=== PATIENT | female | born 1960 | race Caucasian/White ===

== ENCOUNTER 2020-05-13 09:18 | Emergency (ER) | payer MEDICAID ==
--- NOTE | 2020-05-13 10:08 | EDM.PDOC ---
ED HPI GENERAL MEDICAL PROBLEM - General Chief Complaint: General Stated Complaint: PAIN IN NECK AND GOING DOWN ARM Time Seen by Provider: 05/13/20 09:40 Source of Information: Reports: Patient, Family History Limitations: Reports: No Limitations - History of Present Illness INITIAL COMMENTS - FREE TEXT/NARRATIVE: 59-year-old female with chronic arthritis problems, is having a flare of her right arm and right knee over the past several days. She was placed on a course of steroids a year ago and she has done well ever since, she has no primary physician and recently moved to the area and just wants to get some relief. No significant swelling, no trauma, no falls. She is having a lot of numbness in her right hand at night. Onset: Gradual Duration: Day(s): (2 to 3 days) Location: Reports: Upper Extremity, Right, Lower Extremity, Right Improves with: Reports: None Worsens with: Reports: Other (Her right arm seems worse at night), Movement Associated Symptoms: Denies: Fever/Chills Generalized Pain Score (Numeric/FACES): 8 - Related Data Allergies Allergy/AdvReac Type Severity Reaction Status Date / Time Penicillins Allergy Hives Verified 05/13/20 09:40 Home Meds: Home Meds NK [No Known Home Meds] 05/13/20 [History] Past Medical History Genitourinary History: Reports: Other (See Below) Other Genitourinary History: 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 - Infectious Disease History Infectious Disease History: Reports: Mumps Social & Family History - Tobacco Use Tobacco Use Status *Q: Current Every Day Tobacco User Years of Tobacco use: 30 Packs/Tins Daily: 0.5 Used Tobacco, but Quit: No Second Hand Smoke Exposure: Yes - Caffeine Use Caffeine Use: Reports: Coffee - Recreational Drug Use Recreational Drug Use: No ED ROS GENERAL - Review of Systems Review Of Systems: See Below Constitutional: Denies: Fever, Chills Respiratory: Denies: Shortness of Breath Cardiovascular: Denies: Chest Pain GI/Abdominal: Denies: Abdominal Pain, Nausea, Vomiting : Reports: No Symptoms Musculoskeletal: Reports: Joint Pain (Especially right knee) Skin: Denies: Bruising Neurological: Reports: Paresthesia (Paresthesias in her right hand not including the small finger, worse at night) ED EXAM, GENERAL - Physical Exam Exam: See Below Exam Limited By: No Limitations General Appearance: Alert, No Apparent Distress Head: Atraumatic Neck: Supple, Non-Tender Respiratory/Chest: Lungs Clear Cardiovascular: Regular Rate, Rhythm Extremities: Other (No effusion of the right elbow, wrist or knee. Moderate discomfort with flexion and extension of the knee.) Neurological: Alert, Oriented Course - Vital Signs Last Recorded V/S: Last Vital Signs Temp 98.4 F 05/13/20 09:48 Pulse 84 05/13/20 09:48 Resp 16 05/13/20 09:48 BP 142/72 H 05/13/20 09:48 Pulse Ox 92 L 05/13/20 09:48 - Re-Assessments/Exams Free Text/Narrative Re-Assessment/Exam: 05/13/20 10:09 Patient was placed on a Medrol Dosepak and given naproxen to take twice daily as needed. I encouraged her to establish care at the clinic with Dr. Anne Miranda and she agreed to call and make an appointment. Departure - Departure Time of Disposition: 10:20 Disposition: Home, Self-Care 01 Clinical Impression: Acute arthritis - Discharge Information Instructions: Arthritis, [id number] Referrals: PCP,None [Primary Care Provider] - Forms: ED Department Discharge Care Plan Goals: Take steroid as directed, and use naproxen up to twice daily with food. Call the clinic to see if you can get established with Dr. Anne Miranda for follow-up care. Wear the wrist splint at night for your carpal tunnel and wrap knee if it helps with discomfort. Sepsis Event Note (ED) - Evaluation Sepsis Screening Result: No Definite Risk - Focused Exam Vital Signs: Vital Signs Temp Pulse Resp BP Pulse Ox 05/13/20 09:48 98.4 F 84 16 142/72 H 92 L 05/13/20 09:36 98.4 F 84 16 142/72 H 92 L
== END 2020-05-13 10:20 | disposition home or self-care (01) ==
LOC: JP.ED 09:18
DX: M13.861 Other specified arthritis, right knee (principal); M13.841 Other specified arthritis, right hand; F17.210 Nicotine dependence, cigarettes, uncomplicated; Z88.0 Allergy status to penicillin
CPT/HCPCS: 99283

== ENCOUNTER 2020-10-22 16:52 | Emergency (ER) | payer MEDICAID ==
--- NOTE | 2020-10-22 18:52 | EDM.PDOC ---
ED HPI GENERAL MEDICAL PROBLEM - General Chief Complaint: Respiratory Problem Stated Complaint: LOWER BACK PAIN, CONGESTION, COUGH Time Seen by Provider: 10/22/20 18:15 Source of Information: Reports: Patient History Limitations: Reports: No Limitations - History of Present Illness INITIAL COMMENTS - FREE TEXT/NARRATIVE: Yuli is a 59-year-old female presenting to the ED for evaluation of increased facial pain, congestion, cough, and shortness of breath. Due to unfortunate circumstances, the patient and her have found himself is now living [place] to being [place]. They both of come down with similar symptoms over the last 3 to 4 days. Her symptoms began with facial pain and congestion whereas his was a cough and shortness of breath. Does say that her face hurts worse if she bends forward to tie her shoes. She denies any fever or chills. The cough has been productive of thick yellow sputum. 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 Psychiatric History: Reports: Depression Endocrine/Metabolic History: Reports: Obesity/BMI 30+ - Infectious Disease History Infectious Disease History: Reports: Mumps - Past Surgical History Head Surgeries/Procedures: Reports: None Female Surgical History: Reports: None Endocrine Surgical History: Reports: None Musculoskeletal Surgical History: Reports: None Dermatological Surgical History: Reports: None Social & Family History - Tobacco Use Tobacco Use Status *Q: Current Every Day Tobacco User Years of Tobacco use: 45 Packs/Tins Daily: 0.2 Used Tobacco, but Quit: No Second Hand Smoke Exposure: Yes - Caffeine Use Caffeine Use: Reports: Soda - Recreational Drug Use Recreational Drug Use: No ED ROS GENERAL - Review of Systems Review Of Systems: See Below Constitutional: Reports: No Symptoms HEENT: Reports: Rhinitis, Sinus Problem, Other (Nasal congestion) Respiratory: Reports: Shortness of Breath, Cough Cardiovascular: Reports: No Symptoms Endocrine: Reports: No Symptoms GI/Abdominal: Reports: No Symptoms : Reports: No Symptoms Musculoskeletal: Reports: No Symptoms Skin: Reports: No Symptoms Neurological: Reports: No Symptoms Psychiatric: Reports: No Symptoms Hematologic/Lymphatic: Reports: No Symptoms Immunologic: Reports: No Symptoms ED EXAM, GENERAL - Physical Exam Exam: See Below Exam Limited By: No Limitations General Appearance: Alert, No Apparent Distress Eye Exam: Bilateral Eye: EOMI, PERRL Nose: Nasal Swelling, Nasal Drainage, Other (Tenderness to percussion over the bilateral maxillary sinuses) Throat/Mouth: Normal Inspection, Normal Lips, Normal Oropharynx, Normal Voice, No Airway Compromise Head: Atraumatic, Normocephalic Neck: Normal Inspection, Supple, Non-Tender, Full Range of Motion. No: Lymphadenopathy (R), Lymphadenopathy (L) Respiratory/Chest: No Respiratory Distress, No Accessory Muscle Use, Wheezing (Expiratory greater than inspiratory wheezes consistent with COPD) Cardiovascular: Normal Peripheral Pulses, Regular Rate, Rhythm, No Murmur Peripheral Pulses: 2+: Radial (L), Radial (R) GI/Abdominal: Normal Bowel Sounds, Soft, Non-Tender Back Exam: Normal Inspection Extremities: Normal Inspection Neurological: Alert, Oriented, Normal Cognition, No Motor/Sensory Deficits Psychiatric: Normal Affect Skin Exam: Warm Lymphatic: No Adenopathy Course - Vital Signs Last Recorded V/S: Last Vital Signs Temp 36.6 C 10/22/20 17:11 Pulse 86 10/22/20 20:05 Resp 24 H 10/22/20 17:11 BP 141/68 H 10/22/20 20:05 Pulse Ox 91 L 10/22/20 20:05 - Orders/Labs/Meds Orders: Active Orders 24 hr Category Date Time Status Chest 2V [CR] Stat Exams 10/22/20 18:16 Taken Labs: Laboratory Tests 10/22/20 10/22/20 Range/Units 18:29 18:29 WBC 8.8 (4.5-11.0) K/uL RBC 5.29 (3.30-5.50) M/uL Hgb 16.0 H (12.0-15.0) g/dL Hct 49.1 H (36.0-48.0) % MCV 93 (80-98) fL MCH 30 (27-31) pg MCHC 33 (32-36) % Plt Count 210 (150-400) K/uL Neut % (Auto) 71.4 H (36-66) % Lymph % (Auto) 12.9 L (24-44) % Blair % (Auto) 8.3 H (2-6) % Eos % (Auto) 6.8 H (2-4) % Baso % (Auto) 0.6 (0-1) % C-Reactive Protein 2.26 H (0.0-0.3) mg/dL - Radiology Interpretation Free Text/Narrative:: I viewed the two-view chest x-ray demonstrating hyperinflation but no evidence of focal infiltrates. - Re-Assessments/Exams Free Text/Narrative Re-Assessment/Exam: 10/22/20 20:06 reviewed the patient's labs showing a normal CBC but a significantly elevated CRP at 2.26. The chest x-ray was unremarkable for any acute infiltrates but did show evidence of COPD. The patient likely has acute on chronic bronchitis causing her cough as well as acute sinusitis of the left ethmoid and maxillary sinus. We will put her on azithromycin Z-Christiano which I will send out to the [employer] machine. I anticipate that she will get better over the next 3 to 4 days and reviewed with her indications to return to the ED for reevaluation. Departure - Departure Time of Disposition: 20:07 Disposition: Home, Self-Care 01 Clinical Impression: Acute exacerbation of chronic bronchitis Sinusitis, acute maxillary Qualifiers: Recurrence: not specified as recurrent Qualified Code(s): J01.00 - Acute maxillary sinusitis, unspecified - Discharge Information Instructions: Acute Bronchitis, Adult, [id number], Sinusitis, Adult, [id number] Referrals: PCP,None [Primary Care Provider] - Forms: ED Department Discharge Care Plan Goals: Your work-up shows that you have a sinus infection and likely developing bronchitis on top of chronic obstructive pulmonary disease otherwise known as chronic bronchitis. We will put you on azithromycin Dosepak with 2 tablets today and 1 tablet a day each day after that. This should help clear up the infections. If not improving over the next 4 to 5 days, follow-up with the clinic or return to the ED for reevaluation. Sepsis Event Note (ED) - Evaluation Sepsis Screening Result: No Definite Risk - Focused Exam Vital Signs: Vital Signs Temp Pulse Resp BP Pulse Ox 06/01/21 20:05 86 141/68 H 91 L 10/22/20 18:01 94 138/84 100 10/22/20 17:11 36.6 C 103 H 24 H 142/76 H 91 L 10/22/20 17:05 36.6 C 103 H 24 H 142/76 H 91 L - Problem List & Annotations (1) Acute exacerbation of chronic bronchitis SNOMED Code(s): 042715442 Code(s): J20.9 - ACUTE BRONCHITIS, UNSPECIFIED; J42 - UNSPECIFIED CHRONIC BRONCHITIS Status: Acute Priority: High Current Visit: Yes (2) Sinusitis, acute maxillary SNOMED Code(s): 13979361 Code(s): J01.00 - ACUTE MAXILLARY SINUSITIS, UNSPECIFIED Status: Acute Priority: High Current Visit: Yes Qualifiers: Recurrence: not specified as recurrent Qualified Code(s): J01.00 - Acute maxillary sinusitis, unspecified - Problem List Review Problem List Initiated/Reviewed/Updated: Yes - My Orders Last 24 Hours: My Active Orders 10/22/20 18:16 Chest 2V [CR] Stat - Assessment/Plan Last 24 Hours: My Active Orders 10/22/20 18:16 Chest 2V [CR] Stat
--- NOTE | 2020-10-23 08:57 | CR ---
CHEST: 2 view CLINICAL HISTORY:Cough COMPARISON:None FINDINGS: The heart size, pulmonary vascularity and hilar structures are normal. No infiltrate effusion or pneumothorax is seen. IMPRESSION: No acute cardiopulmonary process.
== END 2020-10-22 20:31 | disposition home or self-care (01) ==
LOC: JP.ED 16:52
DX: J20.9 Acute bronchitis, unspecified (principal); J42 Unspecified chronic bronchitis; J01.00 Acute maxillary sinusitis, unspecified; E66.9 Obesity, unspecified; Z72.0 Tobacco use; Z68.34 Body mass index [BMI] 34.0-34.9, adult; Z88.0 Allergy status to penicillin
CPT/HCPCS: 36415; 71046; 71046-26; 85025; 86140; 99285-25

== ENCOUNTER 2020-11-08 15:21 | Emergency (ER) | payer MEDICAID ==
--- NOTE | 2020-11-08 16:34 | EDM.PDOC ---
ED HPI GENERAL MEDICAL PROBLEM - General Chief Complaint: Back Pain or Injury Stated Complaint: BACK PAIN Time Seen by Provider: 11/08/20 16:20 Source of Information: Reports: Patient History Limitations: Reports: No Limitations - History of Present Illness INITIAL COMMENTS - FREE TEXT/NARRATIVE: 59 yo female with a pHx of a lumbar herniated disc presents with an exacerbation of the same. Has some pain down her R leg to the level of the knee. Blaims her sx's on moving recently into a local apartment. No bowel or bladder incontinence. Has gotten relief in the past with [place] and methocarbimol. Called the clinic today and could not get through for an appt. 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) (methocarbimol, out of her [place]) - Related Data Allergies Allergy/AdvReac Type Severity Reaction Status Date / Time Penicillins Allergy Hives Verified 10/22/20 17:06 Home Meds: Home Meds methocarbamoL [Methocarbamol] 500 mg PO TID PRN 10/22/20 [History] Hydrocodone/Acetaminophen [Hydrocodon-Acetaminophen 5-325] 1 - 2 each PO Q6H PRN #15 tablet 11/08/20 [Rx] methocarbamoL [Methocarbamol] 500 mg PO TID PRN #21 tablet 11/08/20 [Rx] predniSONE [Prednisone] 20 mg PO BID #10 tablet 11/08/20 [Rx] Past Medical History Genitourinary History: Reports: Other (See Below) Other Genitourinary History: 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 Psychiatric History: Reports: Depression Endocrine/Metabolic History: Reports: Obesity/BMI 30+ - Infectious Disease History Infectious Disease History: Reports: Mumps - Past Surgical History Head Surgeries/Procedures: Reports: None Female Surgical History: Reports: None Endocrine Surgical History: Reports: None Musculoskeletal Surgical History: Reports: None Dermatological Surgical History: Reports: None Social & Family History - Caffeine Use Caffeine Use: Reports: Soda ED ROS GENERAL - Review of Systems Review Of Systems: See Below Constitutional: Reports: No Symptoms Respiratory: Reports: No Symptoms Cardiovascular: Reports: No Symptoms GI/Abdominal: Reports: No Symptoms. Denies: Other (incontinence) : Denies: Incontinence Musculoskeletal: Reports: Back Pain (R low) Skin: Reports: No Symptoms Neurological: Reports: Numbness (R thigh) ED EXAM,LOWER BACK PAIN/INJURY - Physical Exam Exam: See Below Exam Limited By: No Limitations General Appearance: Alert, WD/WN, No Apparent Distress, Obese Eye Exam: Bilateral Eye: Normal Inspection Ears: Normal External Exam, Normal Canal, Hearing Grossly Normal Nose: Normal Inspection, No Blood Throat/Mouth: Normal Inspection, Normal Lips, Normal Voice, No Airway Compromise Head: Atraumatic, Normocephalic Neck: Normal Inspection Respiratory/Chest: No Respiratory Distress, No Accessory Muscle Use Back Exam: Normal Inspection, Paraspinal Tenderness (on right, lumbar level), Vertebral Tenderness (mid lumbar). No: CVA Tenderness (R), CVA Tenderness (L) Extremities: Normal Inspection, Normal Range of Motion, Non-Tender, No Pedal Edema Neurological: Alert, Normal Mood/Affect, CN II-XII Intact, No Motor/Sensory Deficits, Oriented x 3, Straight Leg Raise (R). No: Straight Leg Raise (L) DTR - Lower Extremities: 1+: Knee (R), Knee (L), Ankle (R), Ankle (L) Psychiatric: Normal Affect, Normal Mood Skin Exam: Warm, Dry, Intact, Normal Color, No Rash Course - Vital Signs Last Recorded V/S: Last Vital Signs Temp 36.1 C 11/08/20 16:06 Pulse 94 11/08/20 16:06 Resp 17 11/08/20 16:06 BP 135/82 11/08/20 16:06 Pulse Ox 99 11/08/20 16:06 Departure - Departure Time of Disposition: 16:36 Disposition: Home, Self-Care 01 Condition: Fair Clinical Impression: Lumbar pain Radiculopathy Qualifiers: Spinal region: lumbar Qualified Code(s): M54.16 - Radiculopathy, lumbar region - Discharge Information *PRESCRIPTION DRUG MONITORING PROGRAM REVIEWED*: No *COPY OF PRESCRIPTION DRUG MONITORING REPORT IN PATIENT SANTY: No Prescriptions: Hydrocodone/Acetaminophen [Hydrocodon-Acetaminophen 5-325] 1 - 2 each PO Q6H PRN #15 tablet PRN Reason: Pain methocarbamoL [Methocarbamol] 500 mg PO TID PRN #21 tablet PRN Reason: Pain predniSONE [Prednisone] 20 mg PO BID #10 tablet Referrals: PCP,None [Primary Care Provider] - Additional Instructions: Use prescriptions as directed. No lifting. Recheck in the clinic next week. Sepsis Event Note (ED) - Focused Exam Vital Signs: Vital Signs Temp Pulse Resp BP Pulse Ox 11/08/20 16:06 36.1 C 94 17 135/82 99
== END 2020-11-08 16:53 | disposition home or self-care (01) ==
LOC: JP.ED 15:21
DX: M54.16 Radiculopathy, lumbar region (principal); E66.9 Obesity, unspecified; Z68.30 Body mass index [BMI] 30.0-30.9, adult; Z88.0 Allergy status to penicillin
CPT/HCPCS: 99283

== ENCOUNTER 2021-05-10 08:23 | Emergency (ER) | payer MEDICAID ==
[2021-05-10 09:19] LABS: CORONAVIRUS COVID-19 NAA POSITIVE (NEGATIVE)
--- NOTE | 2021-05-10 09:21 | EDM.PDOC ---
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 Is not vaccinated. Has a pHx of COPD. Has been ill 5-6 days. Has not been seen by any other medical providers for this illness. 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) Right Shoulder Pain Score (Numeric/FACES): 8 - Related Data Allergies Allergy/AdvReac Type Severity Reaction Status Date / Time Penicillins Allergy Hives Verified 05/10/21 08:44 Home Meds: Home Meds Cetirizine [ZyrTEC] 10 mg PO DAILY 11/08/20 [History] Albuterol [Ventolin HFA] 2 puff IH Q4HR 05/10/21 [History] Ibuprofen 1,200 mg PO ASDIRECTED 05/10/21 [History] Past Medical History HEENT History: Reports: None Cardiovascular History: Reports: Heart Murmur Respiratory History: Reports: Asthma, COPD, Sleep Apnea Gastrointestinal History: Reports: None Genitourinary History: Reports: Other (See Below) Other Genitourinary History: Occasional bladder 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 Neurological History: Reports: None Psychiatric History: Reports: Depression Endocrine/Metabolic History: Reports: Obesity/BMI 30+ Hematologic History: Reports: None Immunologic History: Reports: None Oncologic (Cancer) History: Reports: None Dermatologic History: Reports: None - Infectious Disease History Infectious Disease History: Reports: Mumps - Past Surgical History Head Surgeries/Procedures: Reports: None HEENT Surgical History: Reports: None GI Surgical History: Reports: None Female Surgical History: Reports: None Endocrine Surgical History: Reports: None Musculoskeletal Surgical History: Reports: None Dermatological Surgical History: Reports: None Social & Family History - Tobacco Use Years of Tobacco use: 45 - Caffeine Use Caffeine Use: Reports: None - Recreational Drug Use Recreational Drug Use: No ED ROS GENERAL - Review of Systems Review Of Systems: See Below Constitutional: Reports: Fever (not today), Malaise HEENT: Reports: No Symptoms Respiratory: Reports: Shortness of Breath (mild), Cough Cardiovascular: Reports: No Symptoms Endocrine: Reports: No Symptoms GI/Abdominal: Reports: No Symptoms : Reports: No Symptoms Musculoskeletal: Reports: No Symptoms Skin: Reports: No Symptoms ED EXAM, GENERAL - Physical Exam Exam: See Below Exam Limited By: No Limitations General Appearance: Alert, WD/WN, No Apparent Distress Eye Exam: Bilateral Eye: Normal Inspection Ears: Normal External Exam, Normal Canal, Hearing Grossly Normal Ear Exam: Bilateral Ear: Auricle Normal, Canal Normal Nose: Normal Inspection, No Blood Throat/Mouth: Normal Inspection, Normal Lips, Normal Oropharynx, Normal Voice, No Airway Compromise Head: Atraumatic, Normocephalic Neck: Normal Inspection Respiratory/Chest: No Respiratory Distress, No Accessory Muscle Use, Crackles. No: Respiratory Distress, Wheezing Cardiovascular: Regular Rate, Rhythm, No Edema Extremities: Normal Inspection, Normal Range of Motion, Non-Tender, No Pedal Edema. No: Pedal Edema Neurological: Alert, Oriented, CN II-XII Intact, Normal Cognition, No Motor/Sensory Deficits Psychiatric: Normal Affect, Normal Mood Skin Exam: Warm, Dry, Intact, Normal Color, No Rash Course - Vital Signs Text/Narrative:: Offered immunoglobulins, she declined this offer. Last Recorded V/S: Last Vital Signs Temp 36.8 C 05/10/21 08:39 Pulse 102 H 05/10/21 08:39 Resp 22 H 05/10/21 08:39 BP 146/58 H 05/10/21 08:39 Pulse Ox 94 L 05/10/21 08:39 - Orders/Labs/Meds Orders: Active Orders 24 hr Category Date Time Status Isolation [COMM] Stat Oth 05/10/21 08:34 Ordered Labs: Laboratory Tests 05/10/21 Range/Units 08:36 Influenza Type A RNA Negative (NEGATIVE) RSV RNA (INAAT) Negative (NEGATIVE) Influenza Type B RNA Negative (NEGATIVE) SARS-CoV-2 RNA (BAKARI) Positive H (NEGATIVE) Departure - Departure Time of Disposition: 09:30 Disposition: Home, Self-Care 01 Condition: Fair Clinical Impression: COVID-19 - Discharge Information *PRESCRIPTION DRUG MONITORING PROGRAM REVIEWED*: Not Applicable *COPY OF PRESCRIPTION DRUG MONITORING REPORT IN PATIENT SANTY: Not Applicable Instructions: COVID-19 Frequently Asked Questions, Symptoms of COVID-19 - [facility] (07/15/2020) Referrals: PCP,None [Primary Care Provider] - Forms: ED Department Discharge Additional Instructions: Take Zinc 50 mg daily and vitamin D 4000 U daily. Stay hydrated. Use acetaminophen for fever control. Recheck if worse. Consider taking a baby aspirin daily to reduce your risk of blood clots from your Covid infection. Recheck if you get very short of breath. Sepsis Event Note (ED) - Evaluation Sepsis Screening Result: Possible Sepsis Risk - Focused Exam Vital Signs: Vital Signs Temp Pulse Resp BP Pulse Ox 05/10/21 08:39 36.8 C 102 H 22 H 146/58 H 94 L - My Orders Last 24 Hours: My Active Orders 05/10/21 08:34 Isolation [COMM] Stat - Assessment/Plan Last 24 Hours: My Active Orders 05/10/21 08:34 Isolation [COMM] Stat
== END 2021-05-10 09:41 | disposition home or self-care (01) ==
LOC: JP.ED 08:23
DX: U07.1 COVID-19 (principal); J44.9 Chronic obstructive pulmonary disease, unspecified; Z88.0 Allergy status to penicillin; Z79.899 Other long term (current) drug therapy
CPT/HCPCS: 0241U; 99284

== ENCOUNTER 2023-06-28 20:13 | Emergency (ER) | payer MEDICAID ==
[2023-06-28] MEDS: Ketorolac 30 MG/ML SDV IM ONE (21:36)
[2023-06-28] MEDS: Cyclobenzaprine 10 MG Tab PO ONE (21:37)
== END 2023-06-28 22:28 | disposition home or self-care (01) ==
LOC: JP.ED 20:13
DX: M62.830 Muscle spasm of back (principal); J44.9 Chronic obstructive pulmonary disease, unspecified; E66.9 Obesity, unspecified; F17.210 Nicotine dependence, cigarettes, uncomplicated; Z68.35 Body mass index [BMI] 35.0-35.9, adult; Z86.16 Personal history of COVID-19; Z88.0 Allergy status to penicillin; Z79.899 Other long term (current) drug therapy
CPT/HCPCS: 96372; 99283; A9270; J1885

== ENCOUNTER 2024-10-05 20:25 | Emergency (ER) | payer MEDICAID | END 2024-10-05 21:34 | disposition home or self-care (01) | LOC: JP.ED 20:25 | DX: M51.360 Other intervertebral disc degeneration, lumbar region with discogenic back pain only (principal); J44.89 Other specified chronic obstructive pulmonary disease; E66.9 Obesity, unspecified; Z86.16 Personal history of COVID-19; F17.200 Nicotine dependence, unspecified, uncomplicated | CPT/HCPCS: 99283 ==